=== PATIENT | female | born 1990 | race Caucasian/White ===

== ENCOUNTER 2021-07-08 16:28 | Emergency (ER) | payer MEDICAID ==
[~2021-07-08] VITALS: Ht 172.7 cm; Wt 62.6 kg
[2021-07-08 17:03] VITALS: BP 111/82
[2021-07-08] MEDS ORDERED: METOCLOPRAMIDE 10 MG/2 ML INJ VIAL IVP ONE (18:00)
[2021-07-08] MEDS ORDERED: NACL 0.9% 500 ML IV ONE (18:00)
[2021-07-08 18:32] LABS: BASOPHILS # (AUTO) 0.1 K/uL (0.00-0.22); BASOPHILS % (AUTO) 0.7 % (0.0-2.0); EOSINOPHILS % (AUTO) 0.1 % (0.0-4.0); HEMATOCRIT 35.6 % (36-48); LYMPHOCYTES # (AUTO) 1.8 K/uL (2.5-16.5); LYMPHOCYTES % (AUTO) 12.3 % (20.5-51.1); MEAN CORPUSCULAR HEMOGLOBIN 31 pg (27-31); MEAN CORPUSCULAR HGB CONC 34 g/dL (33-37); MONOCYTES # (AUTO) 0.8 K/uL (0.8-1.0); MONOCYTES % (AUTO) 5.4 % (1.7-9.3); NEUTROPHILS # (AUTO) 11.8 K/uL (1.8-7.7); NEUTROPHILS % (AUTO) 81.5 % (42.2-75.2); PLATELET COUNT (AUTO) 320 K/uL (140-450); RED BLOOD CELL COUNT(AUTO) 3.91 MIL/uL (4.20-5.40); RED CELL DISTRIBUTION WIDTH 13.9 % (11.6-13.7); WHITE BLOOD COUNT (AUTO) 14.5 K/uL (4.8-10.8)
[2021-07-08 18:50] LABS: ANION GAP 16.8 (8-16); CARBON DIOXIDE 21.5 mmol/L (21-32); CREATININE 0.6 mg/dL (0.6-1.3); POTASSIUM 4.3 mmol/L (3.5-5.1)
[2021-07-08 18:58] LABS: ALBUMIN 3.1 g/dL (3.4-5.0); BILIRUBIN,DIRECT 0.1 mg/dL (0.0-0.3); TOTAL BILIRUBIN 0.5 mg/dL (0.0-1.0)
[2021-07-08] MEDS ORDERED: AMOX-1000 PO (20:49)
[2021-07-08] MEDS ORDERED: AMOXIL/CLAVULANATE 875/125 MG 1 TAB PO ONE (21:00)
--- NOTE | 2021-07-08 21:30 | NUR ---
Patient does not wish to proceed with medical care recommended by dr. TO. Patient given information related to possible complications, up to and including , which could occur as a result of leaving hospital at this time. Patient verbalizes understanding of risks involved leaving against medical advice. Patient has'nt signed AMA form.
== END 2021-07-08 21:30 | disposition left against medical advice (07) ==
LOC: MED 16:28
DX: O98.912 Unspecified maternal infectious and parasitic disease complicating pregnancy, second trimester (principal); J02.9 Acute pharyngitis, unspecified; J36 Peritonsillar abscess; Z3A.21 21 weeks gestation of pregnancy; Z79.899 Other long term (current) drug therapy
CPT/HCPCS: 36415; 80048; 80076; 83690; 85025; 93005; 99284

== ENCOUNTER 2021-08-04 15:51 | Emergency (ER) | payer MEDICAID ==
[~2021-08-04] VITALS: Ht 172.7 cm; Wt 64.0 kg
[~2021-08-04 15:51] MED LIST: AMOX-1000 PO
[2021-08-04 15:54] VITALS: BP 97/79
--- NOTE | 2021-08-04 16:09 | NUR ---
MARK SPRAGUE AT BEDSIDE EVALUATING PT
[2021-08-04] MEDS ORDERED: ACET-10509 PO (16:28)
[2021-08-04] MEDS ORDERED: CLIN300C2 PO (16:28)
--- NOTE | 2021-08-04 16:32 | NUR ---
31 Y/O F C/O SORE THROAT SINCE WEDNESDAY. WAS SEEN HERE X3 WEEKS AGO FOR SAME C/O. PT REQUESTNG FOR DIFFERENT ANTIBIOTICS. 04/06 PAIN. 25 WEEKS MEDHX: TONSILITIS NKA
--- NOTE | 2021-08-04 16:40 | NUR ---
Patient discharged with v/s stable. Written and verbal after care instructions ABOUT TONSILLITIS given and explained. Patient alert, oriented and verbalized understanding of instructions. Ambulatory with steady gait. All questions addressed prior to discharge. ID band removed. Patient advised to follow up with PMD. Rx of ACETAMINOPHEN AND CLINDAMYCIN given.
== END 2021-08-04 16:40 | disposition home or self-care (01) ==
LOC: MED 15:51
DX: O26.891 Other specified pregnancy related conditions, first trimester (principal); J03.90 Acute tonsillitis, unspecified; Z79.899 Other long term (current) drug therapy; Z3A.01 Less than 8 weeks gestation of pregnancy
CPT/HCPCS: 99283

== ENCOUNTER 2021-08-09 10:26 | Emergency (ER) | payer MEDICAID ==
[~2021-08-09] VITALS: Ht 172.7 cm; Wt 65.3 kg
[~2021-08-09 10:26] MED LIST changes: +ACET-10509 PO; +CLIN300C2 PO
[2021-08-09 10:45] VITALS: BP 106/40
--- NOTE | 2021-08-09 10:48 | NUR ---
Patient ambulated to bed 12 with steady/even gait.
--- NOTE | 2021-08-09 10:50 | NUR ---
Dr. Dueñas is evaluating pt at bedside
[2021-08-09] MEDS ORDERED: BENZOCAINE 20% 57 GM CAN MC ONE ×2 (10:54→10:55)
--- NOTE | 2021-08-09 10:55 | NUR ---
31 y/o female, c/o throat pain, sob and painful to swallow and talk. pt was seen here previously for same s/s, was given clindamycin and was informed if symptoms did not get better after 2-3 days to return for follow up. 22 weeks gestation pmh: denies nka med: clindamycin (not effective, uncompleted dose)
[2021-08-09] MEDS ORDERED: LIDOCAINE/EPI 1% 1:100000 20 ML VIAL INJ ONE ×2 (11:00→11:01)
--- NOTE | 2021-08-09 11:21 | NUR ---
Dr. Leana Reddy is at bedside for suction and procedure
--- NOTE | 2021-08-09 13:00 | NUR ---
Patient discharged with v/s stable. Written and verbal after care instructions given and explained. Patient verbalized understanding. Ambulatory with steady gait. All questions addressed prior to discharge. Advised to follow up with PMD.
== END 2021-08-09 13:00 | disposition home or self-care (01) ==
LOC: MED 10:26
DX: O26.892 Other specified pregnancy related conditions, second trimester (principal); J36 Peritonsillar abscess; Z3A.26 26 weeks gestation of pregnancy; Z79.899 Other long term (current) drug therapy
CPT/HCPCS: 42700; 99284; J2001